=== PATIENT | male | born 1955 | race Caucasian/White ===

== ENCOUNTER 2021-03-18 11:17 | Outpatient (REF) | payer BC, SELFPAY ==
--- NOTE | 2021-03-24 09:24 | MHC.AU.ANO ---
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 He has also had a significant history of work related noise exposure without use of hearing protection most of the time. 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 Liver infection Medication List: Sertraline, Aspirin, Levofloxacin, Furosemide (can relate to increased hearing loss), Senokot Otoscopy: Right Ear: Unremarkable Left Ear: Unremarkable Tympanometry: Tympanometry performed due to: To assess integrity of the middle ear system Right Ear: Non-compliant Middle Ear System (Type B) May be related to past tympanic membrane perforation Left Ear: Normal Middle Ear System (Type A) Otoacoustic Emissions Results: Not performed at today's visit. Hearing Evaluation: Transducer(s) Used: Insert Earphones Bone Conduction Method: Conventional Audiometry Stimuli Used: Pure Tones Right Ear: Description of Hearing: Normal hearing threshold at 250 Hz dropping to a moderately-severe high frequency sensorineural hearing loss. Left Ear: Description of Hearing: Normal hearing threshold at 250 Hz dropping to a moderately-severe high frequency sensorineural hearing loss. Speech Recognition Threshold (SRT): Method Used: Monitored Live Voice Stimuli Used: Spondee Words Right Ear: 30 dB HL Left Ear: 30 dB HL Word Discrimination: Method: Recorded Lists Word Lists Used: NU-6 Right Ear: 100% at 70 dB HL Left Ear: 92% at 70 dB HL Most Comfortable Level (MCL): Right Ear: Left Ear: Uncomfortable Loudness Level (UCL): Right Ear: Left Ear: QuickSIN: Binaural Quick SIN Test: 5 dB SNR Loss suggesting Mathew experiences a mild degree of difficulty understanding speech with increasing levels of background noise in this controlled test environment. Interpretation of Results: With this bilateral moderately-severe high frequency hearing loss, Mathew is likely able to hear people speaking, but may have difficulty consistently understanding speech. The high frequency loss interferes with the audibility of consonant sounds which are important to distinguish similar sounding words. Given the significant health issues Mathew is currently dealing with, he is not ready to trial hearing aids at this time. A handout of communication strategies was provided today to help improve his speech understanding. It is very important for his family members to use these strategies. Recommendations: Audiological re-evaluation in one year. Will send a reminder card. If Mathew would like to consider a trial with hearing aids within the next 6 months, he may schedule a Hearing Aid Evaluation appointment Diagnosis: Primary Diagnosis: H90.3 Bilateral Sensorineural Hearing Loss Services Performed: Comprehensive Audiological Evaluation (CPT 39352) Tympanometry (CPT 63869) Signature: Provider: Rodolfo Meza, CCC-A
== END 2021-03-18 11:18 | disposition home or self-care (01) ==
LOC: HO.SH 11:17
PROVIDERS: PCP Internal Medicine; Visit Provider Internal Medicine
DX: H91.93 Unspecified hearing loss, bilateral (principal)
CPT/HCPCS: 92557; 92567